=== PATIENT | female | born 1965 | race Caucasian/White ===

== ENCOUNTER 2022-06-21 14:16 | Emergency (ER) | payer MEDICARE, OTHER, MEDICAID ==
[2022-06-21] MEDS ORDERED: Ketorolac 10 MG Tab PO STA (14:51)
[2022-06-21] MEDS ORDERED: Acetaminophen 500 MG Tab PO STA (14:51)
== END 2022-06-21 16:35 | disposition home or self-care (01) ==
LOC: MERGE 14:16 → MW.ED 14:16
DX: M25.461 Effusion, right knee (principal); E11.9 Type 2 diabetes mellitus without complications; I10 Essential (primary) hypertension; F17.210 Nicotine dependence, cigarettes, uncomplicated; Z88.5 Allergy status to narcotic agent
CPT/HCPCS: 73562; 99283; A9270

== ENCOUNTER 2024-08-17 19:03 | Emergency (ER) | payer MEDICAID ==
[2024-08-17 19:51] LABS: BASOPHILS ABSOLUTE AUTO 0.05 K/uL (0.00-0.20); BASOPHILS PERCENT AUTO 0.4 % (0.0-1.0); EOSINOPHILS ABSOLUTE AUTO 0.24 K/uL (0.00-0.45); HEMATOCRIT 45.2 % (37.0-47.0); HEMOGLOBIN 15.4 g/dL (12.0-16.0); IMMATURE GRAN ABSOLUTE AUTO 0.03 K/uL (0.00-0.05); IMMATURE GRAN PERCENT AUTO 0.3 % (0.0-0.4); LYMPHOCYTES ABSOLUTE AUTO 4.22 K/uL (1.00-4.80); LYMPHOCYTES PERCENT AUTO 35.2 % (24.0-44.0); MEAN CORPUSCULAR HEMOGLOBIN 30.5 pg (28.0-32.0); MEAN CORPUSCULAR HGB CONC 34.1 g/dL (32.0-36.0); MEAN CORPUSCULAR VOLUME 89.5 fL (83.0-99.0); MEAN PLATELET VOLUME 10.7 fL (9.4-12.3); MONOCYTES ABSOLUTE AUTO 0.69 K/uL (0.00-0.80); MONOCYTES PERCENT AUTO 5.8 % (0.0-8.0); NEUTROPHILS ABSOLUTE AUTO 6.76 K/uL (1.80-7.70); NEUTROPHILS PERCENT AUTO 56.3 % (41.0-71.0); PLATELET COUNT,PLT 227 K/uL (150-400); RED BLOOD CELL COUNT 5.05 M/uL (4.10-5.30); WHITE BLOOD CELL COUNT,WBC 11.99 K/uL (3.9-11.3)
[2024-08-17] MEDS: Sodium Chloride 0.9% 1,000 ML IV ONE ×2 (19:51→20:35)
[2024-08-17 20:14] LABS: A/G RATIO 0.8 (0.9-1.6); ALBUMIN 3.2 g/dL (3.4-5.0); BILIRUBIN TOTAL 0.4 mg/dL (0.2-1.0); CALCIUM 9.4 mg/dL (8.5-10.1); CARBON DIOXIDE,CO2 26.3 mmol/L (21.0-32.0); CREATININE 0.9 mg/dL (0.6-1.0); EST CRCL DRUG DOSING (CG) 53.23 mL/min; MAGNESIUM 1.4 mg/dL (1.8-2.4); POTASSIUM,K 4.1 mmol/L (3.5-5.1); PROTEIN TOTAL,TP 7.2 g/dL (6.4-8.2)
[2024-08-17 20:17] LABS: LACTIC ACID 3.1 mmol/L (0.4-2.0)
[2024-08-17] MEDS: Magnesium Oxide 400 MG Tab PO ONE (21:09)
[2024-08-17 21:13] LABS: LACTIC ACID 2.5 mmol/L (0.4-2.0)
[2024-08-17] MEDS: Sulfamethoxazole/Trimethoprim 800-160 MG Tab PO ONE (21:38)
== END 2024-08-17 21:52 | disposition home or self-care (01) ==
LOC: MW.ED 19:03
DX: E11.65 Type 2 diabetes mellitus with hyperglycemia (principal); E86.0 Dehydration; I10 Essential (primary) hypertension; Z75.3 Unavailability and inaccessibility of health-care facilities; Z88.8 Allergy status to other drugs, medicaments and biological substances; Z88.5 Allergy status to narcotic agent; Z88.1 Allergy status to other antibiotic agents; Z79.899 Other long term (current) drug therapy; Z79.4 Long term (current) use of insulin
CPT/HCPCS: 36415; 80053; 82009; 83605; 83690; 83735; 85025; 93005; 96360; 96361; 99285; A9270; J7030; 93010; 99284